=== PATIENT | female | born 1985 | race Caucasian/White ===

== ENCOUNTER 2017-03-17 16:35 | Emergency (ER) | payer BC ==
[~2017-03-17] VITALS: Ht 167.6 cm; Wt 73.0 kg
[2017-03-17] MEDS ORDERED: ACETAMINOPHEN 500MG TABLET PO ONE (20:15)
[2017-03-17 21:07] LABS: BASOPHILS % 0.4 % (0.0-2.0); EOSINOPHILS % 8.9 % (0.0-5.0); HEMATOCRIT. 35.9 % (36.0-48.0); HEMOGLOBIN. 11.4 g/dL (12.0-16.0); LYMPHOCYTES % 38.2 % (20.0-50.0); MEAN CORPUSCULAR HEMOGLOBIN 21.2 pg (28.0-32.0); MEAN CORPUSCULAR VOLUME 66.5 fL (81.0-99.0); MEAN PLATELET VOLUME 8.9 fl (7.4-10.4); MONOCYTES % 6.2 % (2.0-8.0); NEUTROPHILS % 46.3 % (40.0-76.0); PLATELET 234 x1000/uL (130-400); RED BLOOD CELL COUNT 5.39 mill/uL (4.2-5.4); RED CELL DISTRIBUTION WIDTH 14.8 % (11.6-14.6)
[2017-03-17 21:08] LABS: HCG SCREEN NEGATIVE
[2017-03-17 21:11] LABS: CHLORIDE 105 mEq/L (98-107)
[2017-03-17 21:17] LABS: CARBON DIOXIDE 32 mEq/L (21-32)
[2017-03-17 22:14] LABS: PLATELET ESTIMATE NORMAL
[2017-03-17 23:20] VITALS: BP 118/82
== END 2017-03-17 23:34 | disposition home or self-care (01) ==
LOC: ER 21:36
DX: R51 Headache (principal)
CPT/HCPCS: 36415; 70450; 80053; 84703; 85025; 99285